=== PATIENT | female | born 1945 | race Caucasian/White ===

== ENCOUNTER 2017-04-11 17:31 | Emergency (ER) | payer MEDICARE ==
--- NOTE | 2017-04-11 18:15 | UC ---
Throat Pain/Nasal Donavon HPI - HPI Summary HPI Summary: 71 year old female presents with sinus pressure left sided, post nasal drip, headache, some neck discomfort left sided as well. has had recurrent sinus infections and ear infection and has ENT and [employer] as well. She "doesnt have time to be sick" and wants treatment. of not the sore throat goes down her throat and has had some chest burning upper left chest. no radiating pain. nothing downthe arm. no tingling in the face. no difficulty speaking. no SOB. - History of Current Complaint Chief Complaint: UCGeneralIllness Stated Complaint: DONAVON,ST,SINUSES,EARS,NECK Time Seen by Provider: 04/11/17 17:56 Hx Obtained From: Patient Onset/Duration: Sudden Onset Severity: Moderate Cough: Nonproductive - Allergies/Home Medications Allergies/Adverse Reactions: Allergies Allergy/AdvReac Type Severity Reaction Status Date / Time Codeine AdvReac Vomiting Verified 04/11/17 17:56 Diazepam [From Valium] AdvReac Vomiting Verified 04/11/17 17:56 Meperidine [From Demerol HCl] AdvReac Vomiting Verified 04/11/17 17:56 Morphine AdvReac Vomiting Verified 04/11/17 17:56 Propoxyphene [From Darvon] AdvReac Vomiting Verified 04/11/17 17:56 Home Medications: Home Medications Lactobacillus [Probiotic] 1 cap PO DAILY 04/11/17 [History Confirmed 04/11/17] Loratadine [Claritin 10 MG CAP] 10 mg PO DAILY 04/11/17 [History Confirmed 04/11] Losartan TAB* [Cozaar TAB*] 50 mg PO DAILY 04/11/17 [History Confirmed 04/11/17] Melatonin (NF) [Meladox] 3 mg PO BEDTIME 04/11/17 [History Confirmed 04/11/17] Tylenol Arthritis 2 tab BEDTIME 04/11/17 [History Confirmed 04/11/17] PMH/Surg Hx/FS Hx/Imm Hx Previously Healthy: Yes Cardiovascular History: Hypertension - Surgical History Surgical History: Yes Surgery Procedure, Year, and Place: HYSTERECTOMY-1994. LEFT FOOT SX FOR BONE SPUR. RIGHT HAND SX TRIGGER FINGER AND BONE SPUR. CATARACT SX. BOWEL SX. T&A - Family History Known Family History: Positive: None - Social History Occupation: Retired Lives: With Family Alcohol Use: Rare Substance Use Type: None Smoking Status (MU): Former Smoker When Did the Patient Quit Smoking/Using Tobacco: 1988 - Immunization History Most Recent Influenza Vaccination: none Review of Systems Constitutional: Fatigue ENT: Sore Throat, Ear Ache, Nasal Discharge, Sinus Congestion, Sinus Pain/ Tenderness Respiratory: Cough All Other Systems Reviewed And Are Negative: Yes Physical Exam Triage Information Reviewed: Yes Appearance: Well-Appearing, No Pain Distress, Well-Nourished Vital Signs: Initial Vital Signs Temp 98.4 F 04/11/17 17:51 Pulse 63 04/11/17 17:51 Resp 17 04/11/17 17:51 BP 184/86 04/11/17 17:51 Pulse Ox 97 04/11/17 17:51 Vital Signs Reviewed: Yes Eye Exam: Normal ENT Exam: Normal ENT: Positive: Normal ENT inspection, TM dull - left, Sinus tenderness - left maxillary and left frontal Dental Exam: Normal Neck exam: Normal Neck: Positive: 1 Respiratory Exam: Normal Respiratory: Positive: Lungs clear, Normal breath sounds, Other: - left upper chest just below clavicle and left upper chest with some tenderness to palpation. Negative: Crackles, Rhonchi, Stridor, Wheezing, Expiration, Inspiration, Plerual rub Cardiovascular Exam: Normal Musculoskeletal Exam: Normal Neurological Exam: Normal Psychological Exam: Normal Skin Exam: Normal Diagnostics - Laboratory Diagnostic Studies Completed/Ordered: IMPRESSION: NO ACTIVE CARDIOPULMONARY DISEASE. Throat Pain/Nasal Course/Dx - Course Course Of Treatment: With the complaint of the sore throat radiating in the to the chest had xray to confirm no acute concerns. She essentially just wants to ensure she does not continue to develop in to a long lasting sinusitis and desires antibiotics == she is aware of SE and based on her history of sinus infections wants to start today. She is aware she likely could have viral infection but still wants meds. declined rapid strep at this time. if Sx worsen then go to ED - Differential Dx/Diagnosis Differential Diagnosis/HQI/PQRI: Pharyngitis, Sinusitis, URI Provider Diagnoses: Sinusitis Discharge - Discharge Plan Condition: Good Disposition: HOME Prescriptions: Amoxicillin/Clavulanate TAB* [Augmentin TAB 875*] 875 mg PO BID #20 tab Patient Education Materials: Sinusitis (ED) Referrals: Ledy Erazo, PRINCIPAL DATA ARCHITECT [Nurse Practitioner] - 4 Days Additional Instructions: Your xray was negative for any acute concerns
--- NOTE | 2017-04-11 18:46 | RAD ---
HISTORY: Cough, chest discomfort COMPARISONS: None VIEWS: 4: Frontal dual-energy and lateral views of the chest. FINDINGS: CARDIOMEDIASTINAL SILHOUETTE: The cardiomediastinal silhouette is normal. FABIAN: The fabian are normal. PLEURA: The costophrenic angles are sharp. No pleural abnormalities are noted. LUNG PARENCHYMA: The lungs are clear. ABDOMEN: The upper abdomen is clear. There is no subphrenic gas. BONES AND SOFT TISSUES: No bone or soft tissue abnormalities are noted. OTHER: None. IMPRESSION: NO ACTIVE CARDIOPULMONARY DISEASE.
[2017-04-11 19:11] VITALS: BP 164/82
== END 2017-04-11 19:12 | disposition home or self-care (01) ==
LOC: UCCORT 17:31
DX: J32.9 Chronic sinusitis, unspecified (principal); I10 Essential (primary) hypertension; Z87.891 Personal history of nicotine dependence; Z88.5 Allergy status to narcotic agent; Z88.8 Allergy status to other drugs, medicaments and biological substances
CPT/HCPCS: 71020; 99212; G0463